=== PATIENT | female | born 1985 | race Caucasian/White ===

== ENCOUNTER 2021-07-08 16:20 | Emergency (ER) | payer OTHER ==
[2021-07-08] MEDS ORDERED: Famotidine 20 MG TAB ONE (17:09)
== END 2021-07-08 17:20 | disposition home or self-care (01) ==
LOC: MADERS 16:20
DX: O99.512 Diseases of the respiratory system complicating pregnancy, second trimester (principal); T78.49XA Other allergy, initial encounter; O99.352 Diseases of the nervous system complicating pregnancy, second trimester; G40.909 Epilepsy, unspecified, not intractable, without status epilepticus; Z3A.24 24 weeks gestation of pregnancy
CPT/HCPCS: 99283

== ENCOUNTER 2023-04-03 22:35 | Emergency (ER) | payer OTHER ==
[2023-04-03] MEDS ORDERED: Ibuprofen 600 MG TAB ONE (23:26)
== END 2023-04-04 00:20 | disposition home or self-care (01) ==
LOC: MADERS 22:35
DX: J06.9 Acute upper respiratory infection, unspecified (principal); F20.9 Schizophrenia, unspecified; F41.9 Anxiety disorder, unspecified; F31.9 Bipolar disorder, unspecified; G40.909 Epilepsy, unspecified, not intractable, without status epilepticus; Z79.899 Other long term (current) drug therapy
CPT/HCPCS: 87081; 87430; 99283

== ENCOUNTER 2023-10-30 19:26 | Emergency (ER) | payer OTHER | END 2023-10-30 20:19 | disposition home or self-care (01) | LOC: MADERS 19:26 | DX: U07.1 COVID-19 (principal); F17.210 Nicotine dependence, cigarettes, uncomplicated; Z55.6 Problems related to health literacy | CPT/HCPCS: 99283 ==

== ENCOUNTER 2024-01-16 16:57 | Emergency (ER) | payer OTHER ==
[2024-01-16] MEDS ORDERED: Ondansetron ODT 4 MG TAB ONE (18:28)
== END 2024-01-16 18:41 | disposition home or self-care (01) ==
LOC: MADERS 16:57
DX: J06.9 Acute upper respiratory infection, unspecified (principal); F17.210 Nicotine dependence, cigarettes, uncomplicated
CPT/HCPCS: 87081; 87428; 87430; 99284; Q0162